=== PATIENT | female | born 1975 | race Caucasian/White ===

== ENCOUNTER 2017-03-12 01:18 | Emergency (ER) | payer SELFPAY ==
[2017-03-12] MEDS ORDERED: IOPAMIDOL 300 (61%) 100 ML VIAL IV ONE (01:19)
[2017-03-12] MEDS ORDERED: ONDANSETRON 4 MG/2ML 2 ML VIAL ONE (01:47)
[2017-03-12] MEDS ORDERED: MORPHINE SULFATE 4 MG/ML SYRINGE ONE ×2 (01:47→03:10)
[2017-03-12] MEDS ORDERED: SODIUM CHLORIDE 0.9% 1,000 ML ONE (01:47)
[2017-03-12 02:05] LABS: HCG,QUALITATIVE URINE NEGATIVE
[2017-03-12 02:08] LABS: URINE APPEARANCE HAZY; URINE BILIRUBIN NEGATIVE (NEGATIVE); URINE BLOOD 1+ (NEGATIVE); URINE COLOR AMBER; URINE GLUCOSE (UA) NEGATIVE (NEGATIVE); URINE LEUKOCYTE ESTERASE TRACE (NEGATIVE); URINE NITRITE POSITIVE (NEGATIVE); URINE PROTEIN 1+ (NEGATIVE); URINE UROBILINOGEN NORMAL (0-1 mg/dl)
[2017-03-12 02:10] LABS: URINE BACTERIA 3+; URINE EPITHELIAL CELLS PACKED /hpf; URINE WBC 15-20 /hpf
[2017-03-12 02:22] LABS: ABSOLUTE NEUTROPHIL COUNT 4.1 K/mm3 (1.8-7.7); BASO % 0.5 % (0.2-1.0); EOS % 0.3 % (0.9-2.9); HEMATOCRIT 32.6 % (37.0-47.0); HEMOGLOBIN 10.4 gm/l (12.0-16.0); IMM NEUT% 0.2 % (0-1); LYMPH # 0.8 (1.0-4.8); LYMPH % 14.1 % (15-45); MEAN CELL VOLUME 83.2 fl (81.0-99.0); MEAN CORPUSCULAR HEMOGLOBIN 26.5 pg (27.0-31.0); MEAN CORPUSCULAR HGB CONC 31.9 g/dl (33.0-37.0); MEAN PLATELET VOLUME 10.8 fl (7.4-10.4); MONO # 0.9 (0.0-0.8); MONO % 15.8 % (4-12); NEUT % 69.1 % (43-75); PLATELET COUNT 309 K/mm3 (130-400); RED CELL DISTRIBUTION WIDTH 14.7 % (11.5-14.5)
[2017-03-12 02:24] LABS: AMPHETAMINES/METHAMPHETAMINES POSITIVE (NEGATIVE); COCAINE NEGATIVE (NEGATIVE); MARIJUANA NEGATIVE (NEGATIVE); METHADONE NEGATIVE (NEGATIVE); OPIATES NEGATIVE (NEGATIVE); TRICYCLIC ANTIDEPRESSANTS NEGATIVE (NEGATIVE)
[2017-03-12 02:37] LABS: ALB/GLOB RATIO 1.2 (>1.0); ALBUMIN 3.9 gm/dL (3.5-5.7); MAGNESIUM 1.7 mg/dL (1.9-2.7)
[2017-03-12] MEDS ORDERED: CLINDAMYCIN 900 MG PREMIX 50 ML IV ONE (04:10)
[2017-03-12] MEDS ORDERED: GENTAMICIN SULFATE 800 MG/20 ML VIAL ONE (04:24)
[2017-03-12] MEDS ORDERED: SODIUM CHLORIDE 0.9% 100 ML IV ONE (04:27)
[2017-03-12] MEDS ORDERED: GENTAMICIN SULFATE 80 MG/2 ML VIAL ONE (04:35)
[2017-03-12] MEDS ORDERED: AZITHROMYCIN 250 MG TABLET ONE (05:43)
[2017-03-12] MEDS ORDERED: CEFTRIAXONE SODIUM 250 MG VIAL ONE (05:43)
--- NOTE | 2017-03-12 07:55 | US ---
Exam: Complete pelvic ultrasound COMPARISON: CT 03/12/2017 INDICATION: Abnormal CT, right lower quadrant abdominal pain and tenderness. Concern for tubo-ovarian abscess. Findings: Transabdominal and transvaginal pelvic ultrasound was obtained. Uterus measures 9.7 x 4.4 x 5.3 cm and is homogeneous in echotexture. Endometrium is within normal limits, with a normal trilaminar appearance measuring up to 13 mm in bilayer thickness on the transvaginal exam. Located within the right adnexa is a fluid-filled serpiginous structure most compatible with hydrosalpinx. Fluid within the tube appears simple. No significant increased vascularity is seen in the right adnexa. Right ovary is not visualized. The left ovary measures 1.7 x 2.6 x 3.1 cm and is unremarkable. There is no significant free fluid in the cul-de-sac. IMPRESSION: Right-sided hydrosalpinx. No definite evidence of pyosalpinx or tubo-ovarian abscess. Right ovary is not visualized as a separate structure. Uterus and left ovary within normal limits. Preliminary report transmitted to the emergency department from [employer] at 0516 hours 03/12/2017.
--- NOTE | 2017-03-12 08:05 | CT ---
Exam: CT abdomen and pelvis with contrast COMPARISON: None INDICATION: Right lower quadrant pain and tenderness. TECHNIQUE: CT examination of the abdomen and pelvis was obtained following the administration of 100 mL Isovue-300 intravenous contrast. FINDINGS: The appendix is normal. There is no bowel obstruction, free air or significant free intraperitoneal fluid. Bilateral hydrosalpinx is appreciated, right much greater than left. Left ovary is within normal limits, with a corpus luteum. Right ovary is not definitively visualized. Minimal amount of fat stranding is seen in the right adnexa. Uterus is present within normal limits. There is a small amount of gas identified within the urinary bladder. A few subcentimeter low-density lesions are seen within the left lateral lobe of the liver and are too small to characterize but are likely cysts. Gallbladder is present within normal limits. Spleen is normal in size. There is no adrenal mass. Kidneys and pancreas are within normal limits. Lung bases are clear. Bones unremarkable. IMPRESSION: 1. Bilateral hydrosalpinx, right greater than left. Minor inflammatory changes are seen about the right adnexa. Correlate for signs and symptoms of acute pelvic inflammatory disease, as pyosalpinx cannot be excluded. 2. Small amount of gas is identified within the urinary bladder. Consider correlation with urinalysis. 3. 2 subcentimeter low-density lesions within the liver too small to characterize but are statistically likely be benign. 4. Otherwise normal CT examination of the abdomen and pelvis. Preliminary report transmitted to the emergency department from [facility] at 0032 hours 03/12/2017.
[2017-03-13 14:16] LABS: CHLAMYDIA BD Negative (Negative); N.GONORRHOEAE BD Negative (Negative); SOURCE Urine (())
== END 2017-03-12 07:24 | disposition home or self-care (01) ==
LOC: SUPCPDRO 01:18 → ED 01:18
DX: N70.91 Salpingitis, unspecified (principal); R11.2 Nausea with vomiting, unspecified; F17.210 Nicotine dependence, cigarettes, uncomplicated
CPT/HCPCS: 83605; 83690; 87491; 87591; 81025; 85025; 87040; 80305; 80053; 83735; 81001; 74177; 76856; 76830; 96375 ×2; 96376; 99284 ×2; 96361; 96365; J2270 ×2; J0696; J2405; A9270; J7030; J7050; J1580; Q9967